=== PATIENT | female | born 1965 | race Caucasian/White ===

== ENCOUNTER → 2016-12-04 | Outpatient (CLI) | payer BC ==
[~2016-12-04] MED LIST: ALPR-411 PO; TRIA1SPR2 INTNAS; TYL325X PO
--- NOTE | 2016-12-05 13:28 | MAMMOGRAPHY REPORT ---
BILATERAL DIGITAL SCREENING MAMMOGRAM TOMOSYNTHESIS WITH CAD: 12/04/2016 CLINICAL HISTORY: Routine screening. Patient has no complaints. TECHNIQUE: Breast tomosynthesis in addition to standard 2D mammography was performed. Current study was also evaluated with a Computer Aided Detection (CAD) system. COMPARISON: Comparison is made to exams dated: 11/29/2015 mammogram, 09/07/2014 mammogram, 09/04/2013 m ammogram, 08/15/2012 mammogram, 08/15/2011 mammogram, and 08/15/2010 mammogram - [facility] er. BREAST COMPOSITION: The tissue of both breasts is heterogeneously dense, which may obscure small mas ses. FINDINGS: There are benign-appearing round and punctate microcalcifications in the breasts. No suspi cious spiculated or irregular mass, architectural distortion or cluster of microcalcifications is see n. IMPRESSION: ACR BI-RADS CATEGORY 1: NEGATIVE There is no mammographic evidence of malignancy. A 1 year screening mammogram is recommended. The pa tient will receive written notification of the results. Approximately 10% of breast cancers are not detected with mammography. A negative mammographic report should not delay biopsy if a clinically suggestive mass is present. Jacinta Mckeon M.D. ay/:12/04/2016 16:31:32 Valve Repairer: Marielle LAWSON)(M), [facility] letter sent: Normal 1/2 BI-RADS Code: ACR BI-RADS Category 1: Negative
== END | disposition home or self-care (01) ==
LOC: C.MAMM 14:11
PROVIDERS: ATTEND Obstetrics & Gynecology
DX: Z12.31 Encounter for screening mammogram for malignant neoplasm of breast (principal)

== ENCOUNTER → 2017-01-09 | Outpatient (CLI) | payer BC ==
--- NOTE | 2017-01-09 16:07 | MAMMOGRAPHY REPORT ---
UNILATERAL LEFT DIGITAL DIAGNOSTIC MAMMOGRAM TOMOSYNTHESIS WITH CAD AND TARGETED LEFT ULTRASOUND: 01/09 CLINICAL HISTORY: 51-year-old woman presents with one and half weeks of left breast pain. She report ed her left breast was increasing in size and there was a large firm mass occupying most of the centr al breast. She reported an itchy nipple and pain in the breast similar to remote mastitis, as well a s 1 day of skin erythema. Patient reports her doctor felt a 2 cm cyst on physical exam. TECHNIQUE: Left breast tomosynthesis in addition to standard 2D mammography was performed. Current st udy was also evaluated with a Computer Aided Detection (CAD) system. COMPARISON: Comparison is made to exams dated: 12/04/2016 mammogram, 11/29/2015 mammogram, 09/07/2014 m ammogram, 08/15/2012 mammogram, 09/04/2013 mammogram, and 08/15/2011 mammogram - [facility]. BREAST COMPOSITION: The tissue of the left breast is heterogeneously dense, which may obscure small masses. FINDINGS: A triangle skin palpable marker overlies the upper outer quadrant of the left breast, denot ing the area of lump pointed out by the patient. The parenchymal pattern is similar to prior mammogr ams. There are a few scattered stable benign-appearing calcifications. No obvious new mass, archite ctural distortion or cluster of suspicious microcalcifications is seen. Targeted ultrasound was performed throughout the left breast 11:00 through 7:00 axes including the re troareolar breast in the area of firm lump described by the patient. She reported the lump encompass ed most of her breast measuring up to 10 cm. Throughout the visualized left breast, there is benign duct ectasia and a few scattered cysts in the retroareolar and 3:00 periareolar breast. There is an oval parallel circumscribed anechoic mass with posterior acoustic enhancement in the 2:00 left breast , 1 cm from the nipple, representing a cyst. Another anechoic benign simple cyst is seen in the 3:00 left breast, 5 cm from the nipple, measuring 4.5 mm. No suspicious solid mass is identified. No dr ainable fluid collection or focal skin thickening is seen. IMPRESSION: ACR BI-RADS CATEGORY 2: BENIGN, TARGETED ULTRASOUND ACR BI-RADS CATEGORY 2: BENIGN There is no mammographic or targeted sonographic evidence of malignancy in the left breast. No suspi cious mammographic or sonographic abnormality is identified to explain the diffuse left breast thicke lopez, pain and erythema. Clinical follow-up is recommended as this could represent resolved mastitis . Clinical follow-up is also recommended for the reported 2 cm palpable lump identified by the patie nt's physician, as biopsy of a clinically suspicious mass should not be precluded by negative imaging . Otherwise, return to annual screening mammography schedule. Approximately 10% of breast cancers are not detected with mammography. A negative mammographic report should not delay biopsy if a clinically suggestive mass is present. Jacinta Mckeon M.D. ay/:01/09/2017 14:59:56 Electronic Parts Designer: Candy Desir, [facility] letter sent: Normal 1/2 BI-RADS Code: ACR BI-RADS Category 2: Benign Ultrasound BI-RADS: ACR BI-RADS Category 2: Benign
== END | disposition home or self-care (01) ==
LOC: C.MAMM 13:00
PROVIDERS: ATTEND Nurse Practitioner Family
DX: N64.4 Mastodynia (principal); N63 Unspecified lump in breast

== ENCOUNTER → 2018-01-22 | Outpatient (CLI) | payer BC ==
[~2018-01-22] MED LIST changes: -ALPR-411 PO; +ARMOUR THYROID PO; +MAGN1CAP2 PO; +OMEP20TA14 PO; -TRIA1SPR2 INTNAS; +TRIA1SPR4 NAE; -TYL325X PO
== END | disposition home or self-care (01) ==
LOC: C.CPL 15:40
PROVIDERS: ATTEND Otolaryngology
DX: Z01.810 Encounter for preprocedural cardiovascular examination (principal)

== ENCOUNTER → 2018-01-24 | Day surgery (SDC) | payer BC ==
[2018-01-18 07:44] VITALS: Ht 165.1 cm; Wt 79.5 kg
--- NOTE | 2018-01-23 08:45 | History and Physical: Surg Cnt ---
History & Physical Date Jan 23, 2018. Chief Complaint hoarse voice History of Present Illness The patient is a 52 year old female with complaints of left vocal cord nodule Past Medical/Surgical History Medical Problems: (1) Appendectomy (2) Bronchitis (3) Diverticulosis (4) History of - tubal ligation (5) Kidney stone (6) LEAP procedure (7) skin problems Allergies Coded Allergies: Chlorhexidine (Verified Allergy, Mild, RASH AND BURNING SENSATION, 01/18/18 ) Home Medications Scheduled Magnesium Oxide (Mg Supplement (Magnesium), 1 CAP PO HS Omeprazole Magnesium (Prilosec Otc), 20 MG PO QAM Triamcinolone Acetonide (Nasal (Nasacort Allergy 24Hr), 1 SPRAY NAZARIO HS [[place] Thyroid], 60 MG PO QAM Physical Examination Skin: warm/dry, no rash Eyes: normal inspection, EOMI, sclerae normal ENT: normal ENT inspection, pharynx normal, + pertinent finding (left vocal cord nodule) Head: normocephalic, atraumatic Neck: supple, no adenopathy, trachea midline Respiratory/Chest: lungs clear, normal breath sounds, no respiratory distress Cardiovascular: regular rate, rhythm, no edema, no murmur Abdomen / GI: normal bowel sounds, non tender Back: normal inspection Extremities: normal inspection, normal range of motion Neurologic/Psych: no motor/sensory deficits, alert, normal reflexes, oriented x 3 Diagnosis left vocal cord nodule Plan of Treatment direct laryngoscopy, micro excision
[~2018-01-24] VITALS: Ht 165.1 cm; Wt 79.5 kg
[~2018-01-24] MED LIST changes: +ATROPINE SULFATE 0.1 MG/ML 5ML SYR IV PRN; +DEXAMETHASONE SOD INJ 4 MG/ML VIAL ONE; +EpHEDrine SULFATE INJ 50 MG/ML AMP IV PRN; +EpINEphrine INJ 1MG/ML AMP 1 MG/ML AMP ONE; +FENTANYL CITRATE INJ 50 MCG/1 ML 2 ML VIAL IV PRN; +FENTANYL CITRATE INJ 50 MCG/1 ML 2 ML VIAL ONE; +FLUMAZENIL 0.1 MG/1 ML 10 ML VIAL IV PRN; +HYDROCODONE/ACETAMIN 5/325MG TAB PO PRN; +IBUPROFEN 600 MG TAB PO PRN; +LABETALOL HCL IV 5 MG/ML 20ML IV PRN; +LACTATED RINGER'S 1000ML 1,000 ML IV SCH; +LIDOCAINE HCL 2% 2 ML VIAL (20MG/ML) ONE; +MIDAZOLAM HCL 1 MG/ML 2ML VIAL ONE; +NALOXONE HCL 0.4 MG/1 ML VIAL/CARP IV PRN; +ONDANSETRON INJ 2 MG/ML 2 ML VIAL IV PRN; +ONDANSETRON INJ 2 MG/ML 2 ML VIAL ONE; +PROMETHAZINE HCL INJ 12.5 MG in SODIUM CHLORIDE 0.9% 50ML 50 ML IV PRN; +PROPOFOL IV EMULSION 10 MG/ML 20 ML VIAL ONE; +SCOPOLAMINE 1.5 MG TDSY TD ONE; +SODIUM CHLORIDE 0.9% 1000ML 1,000 ML IV SCH; +SUCCINYLCHOLINE CHLORIDE 20 MG/ML 10 ML VIAL IV ONE
--- NOTE | 2018-01-24 08:33 | History & Physical Bridge Note ---
H&P Re-Evaluation Bridge Note: I have examined the patient, reviewed the History & Physical and in the interval since the performance of the History & Physical I have noted the following changes of clinical significance: No changes noted
--- NOTE | 2018-01-24 11:01 | Discharge Instructions-SurgCtr ---
Discharge Instructions Date of Service Jan 24, 2018. Visit Reason for Visit: Left Vocal Cord Polyp Discharge Discharge Diagnosis / Problem: same Discharge Goals Goal(s): Improve function Activity Recommendations Activity Limitations: per Instructions/Follow-up section Anesthesia . Post Anesthesia Instructions: If you have had General Anesthesia or IV Sedation: * Do not drive today. * Resume driving when surgeon permits. * Do not make important decisions or sign legal documents today. * Call surgeon for: 1. Temperature elevations greater than 101 degrees F. 2. Uncontrollable pain. 3. Excessive bleeding. 4. Persistent nausea and vomiting. 5. Medication intolerance (nausea, vomiting or rash). * For nausea and vomiting use only clear liquids such as: tea, soda, bouillon until nausea subsides, then gradually increase diet as tolerated. * If you have any concerns or questions, call your surgeon's office. If physician is unavailable and it is an emergency, call 911 or go to the nearest emergency room. . Instructions / Follow-Up Instructions / Follow-Up Rest voice x 1 week Avoid hot liquids or spicy food. Follow up with Dr. Toribio 2 weeks, office [phone] Emergency call Dr. Toribio cell [phone] Diet Recommendations Home Diet: no limitations Procedures Procedures Performed: Direct Larygoscopy With Micro Excision of Left Vocal Cord Polyp Pending Studies Studies pending at discharge: no Medical Emergencies . Who to Call and When: Medical Emergencies: If at any time you feel your situation is an emergency, please call 911 immediately. . Non-Emergent Contact Non-Emergency issues call your: Primary Care Provider . . "Provider Documentation" section prepared by Kelly Toribio. . [place] Drug Monitoring Program Search Results: no issues identified
--- NOTE | 2018-01-24 11:51 | Anesthesia Progress Nt - [facility] ---
Anesthesia Post Op Note Date & Time Jan 24, 2018 at 11:51 Vital Signs Pain Intensity: 0 Vital Signs Past 12 Hours Date Time Temp Pulse Resp B/P (MAP) Pulse Ox O2 Delivery O2 Flow Rate FiO2 01/24/18 11:15 36.5 107 16 137/83 95 Mask 5 01/24/18 09:03 36.8 93 16 122/81 (95) 97 Room Air Notes Mental Status: alert / awake / arousable, participated in evaluation Pt Amnestic to Procedure: Yes Nausea / Vomiting: adequately controlled Pain: adequately controlled Airway Patency, RR, SpO2: stable & adequate BP & HR: stable & adequate Hydration State: stable & adequate Anesthetic Complications: no major complications apparent
[2018-01-24 12:19] VITALS: TEMP 36
[2018-01-24 12:44] VITALS: BP 128/77; PULSE 70; O2SAT 97
--- NOTE | 2018-01-24 13:59 | [facility] Post Operative Brief Note ---
Immediate Operative Summary Operative Date Jan 24, 2018. Pre-Operative Diagnosis Left Vocal Cord Polyp Post-Operative Diagnosis same Procedure(s) Performed Direct Larygoscopy With Micro Excision of Left Vocal Cord Polyp Surgeon Dr. Nasreen Toribio Automotive Refinish Technician Surgeon(s) 0 Estimated Blood Loss 1cc Findings Consistent with Post-Op Diagnosis Specimens A. Left Vocal Cord Nodule Drains None Anesthesia Type General Complication(s) none Disposition Accompanied Pt To Recover: yes Disposition: Recovery Room / PACU Overlapping Procedure I was present for: the critical portions of procedure. I was immediately available: during the entire case
--- NOTE | 2018-01-24 15:53 | OPERATIVE REPORT ---
DATE OF OPERATION: 01/24/2018 PREOPERATIVE DIAGNOSIS: Left vocal cord nodule. POSTOPERATIVE DIAGNOSIS: Left vocal cord nodule. PROCEDURE: Direct laryngoscopy and micro-excision of left vocal cord nodule. SURGEON: Dr. Toribio. ANESTHESIA: General endotracheal. COMPLICATIONS: None. BLOOD LOSS: 2 mL HISTORY OF PRESENT ILLNESS: This 52-year-old lady presented with hoarseness and found to have a hyaline-type polyp of the left mid vocal cord. The above procedure was requested by the patient. DESCRIPTION OF PROCEDURE: The patient brought to the operating room and placed in supine position. General endotracheal anesthesia was induced. The Dedo laryngoscope was used for direct laryngoscopy. Suspension and microlaryngoscopy was performed. Epiglottis was sharp. Vallecula and piriform sinus areas were normal. Endolarynx was inspected. Suspension and microlaryngoscopy was performed. There was a pinkish type polyp of the left true vocal cord. This was grasped with upbiting cup forceps and excised using up-cutting scissors and straight cutting scissors excising the polyp, preserving the leading edge of the mucosa of the vocal cord. Hemostasis was noted to be adequate and the patient was extubated and taken to recovery area in satisfactory condition. I attest to the content of the Intraoperative Record and any orders documented therein. Any exception s are noted below.
== END | disposition home or self-care (01) ==
LOC: X.SURG 08:40
PROVIDERS: ATTEND Otolaryngology
DX: J38.2 Nodules of vocal cords (principal); K21.9 Gastro-esophageal reflux disease without esophagitis; Z88.8 Allergy status to other drugs, medicaments and biological substances; Z79.899 Other long term (current) drug therapy; E03.9 Hypothyroidism, unspecified